=== PATIENT | male | born 1950 | race Caucasian/White ===

== ENCOUNTER → 2016-07-17 | Outpatient (CLI) | payer OTHER ==
[~2016-07-17] MED LIST: ATOR-54 PO; CYAN10004 PO; GLC/500 PO; SULF500T36 PO; TAMS0.4C59 PO
== END | disposition home or self-care (01) ==
LOC: C.PATHSPEC 14:17
PROVIDERS: ATTEND Dermatology
DX: L82.1 Other seborrheic keratosis (principal)

== ENCOUNTER → 2016-08-21 | Outpatient (CLI) | payer OTHER ==
[2016-08-21 17:23] LABS: BLOOD UREA NITROGEN 9 mg/dl (7-18); BUN/CREATININE RATIO 10.7 (10-20); CALCIUM 9.4 mg/dl (8.5-10.1); CARBON DIOXIDE 30 mmol/L (21-32); CHLORIDE 104 mmol/L (98-107); CREATININE 0.84 mg/dl (0.60-1.40); GLUCOSE 110 mg/dl (70-99); POTASSIUM 4.1 mmol/L (3.5-5.1); SODIUM 139 mmol/L (136-145)
[2016-08-21 17:34] LABS: CHOLESTEROL 178 mg/dl (0-200); HDL CHOLESTEROL 45 mg/dl; LDL CHOLESTEROL CALCULATED 104 mg/dl; TRIGLYCERIDES 146 mg/dl (0-150); VERY LOW DENSITY LIPOPROT CALC 29 mg/dl
[2016-08-22 07:38] LABS: ESTIMATED AVERAGE GLUCOSE 114 mg/dl; HA1C FLAG Normal (Normal)
== END | disposition home or self-care (01) ==
LOC: C.LABPVFM 11:47
PROVIDERS: ATTEND Family Medicine
DX: E78.00 Pure hypercholesterolemia, unspecified (principal); R73.09 Other abnormal glucose; R53.83 Other fatigue

== ENCOUNTER → 2017-02-14 | Outpatient (CLI) | payer OTHER ==
[2017-02-14 13:01] LABS: ESTIMATED AVERAGE GLUCOSE 94 mg/dl; HA1C FLAG Normal (Normal)
[2017-02-14 13:26] LABS: BLOOD UREA NITROGEN 13 mg/dl (7-18); BUN/CREATININE RATIO 16.3 (10-20); CALCIUM 9.4 mg/dl (8.5-10.1); CARBON DIOXIDE 26 mmol/L (21-32); CHLORIDE 106 mmol/L (98-107); CHOLESTEROL 150 mg/dl (0-200); CHOLESTEROL/HDL RATIO 3.1; GLUCOSE 108 mg/dl (70-99); HDL CHOLESTEROL 49 mg/dl; LDL CHOLESTEROL CALCULATED 77 mg/dl; POTASSIUM 4.2 mmol/L (3.5-5.1); SODIUM 139 mmol/L (136-145); TRIGLYCERIDES 120 mg/dl (0-150); VERY LOW DENSITY LIPOPROT CALC 24 mg/dl
== END | disposition home or self-care (01) ==
LOC: C.LABPVFM 09:35
PROVIDERS: ATTEND Family Medicine
DX: E11.9 Type 2 diabetes mellitus without complications (principal); E78.00 Pure hypercholesterolemia, unspecified

== ENCOUNTER → 2017-08-06 | Outpatient (CLI) | payer OTHER ==
[2017-08-06 12:11] LABS: HEMATOCRIT 42.6 % (42-52); HEMOGLOBIN 14.3 g/dL (14.0-18.0); MEAN CELL VOLUME 99.5 fL (80-100); MEAN CORPUSCULAR HEMOGLOBIN 33.4 pg (25-34); MEAN CORPUSCULAR HGB CONC 33.6 g/dl (32-36); MEAN PLATELET VOLUME 10.6 fL (7.4-10.4); PLATELET COUNT 156 K/uL (130-400); RED CELL DISTRIBUTION WIDTH CV 13.2 % (11.5-14.5); RED CELL DISTRIBUTION WIDTH SD 47.3 fL (36.4-46.3); WHITE BLOOD COUNT 6.31 K/uL (4.8-10.8)
[2017-08-06 12:44] LABS: HEMOGLOBIN A1C 5.6 % (4.5-5.6)
[2017-08-06 13:16] LABS: BLOOD UREA NITROGEN 11 mg/dl (7-18); CREATININE 0.89 mg/dl (0.60-1.40); GLUCOSE 130 mg/dl (70-99)
[2017-08-06 13:17] LABS: CARBON DIOXIDE 28 mmol/L (21-32); POTASSIUM 4.3 mmol/L (3.5-5.1); SODIUM 136 mmol/L (136-145)
[2017-08-06 13:18] LABS: ALBUMIN 4.2 gm/dl (3.4-5.0); ALKALINE PHOSPHATASE 46 U/L (45-117); ALT/SGPT 23 U/L (12-78); AST/SGOT 11 U/L (15-37); CALCIUM 9.4 mg/dl (8.5-10.1); TOTAL PROTEIN 7.5 gm/dl (6.4-8.2)
[2017-08-06 13:19] LABS: CHOLESTEROL 148 mg/dl (0-200)
[2017-08-06 13:20] LABS: LDL CHOLESTEROL CALCULATED 77 mg/dl
== END | disposition home or self-care (01) ==
LOC: C.LABPVFM 09:20
PROVIDERS: ATTEND Family Medicine
DX: K51.90 Ulcerative colitis, unspecified, without complications (principal)

== ENCOUNTER 2019-01-17 02:03 | Inpatient (IN) ==
[2019-01-17 02:47] LABS: Basophils # (auto) 0.03 K/uL (0-0.2); Basophils % (auto) 0.4 %; Eosinophils # (auto) 0.03 K/uL (0-0.5); Eosinophils % (auto) 0.4 %; Hemoglobin 13.9 g/dL (14.0-18.0); Immature Granulocytes # (auto) 0.06 K/uL (0.00-0.02); Immature Granulocytes % (auto) 0.9 %; Mean Corpuscular Hemoglobin 32.6 pg (25-34); Mean Corpuscular Hgb Conc 33.1 g/dL (32-36); Mean Corpuscular Volume 98.4 fL (80-100); Mean Platelet Volume 10.7 fL (7.4-10.4); Monocytes # (auto) 0.76 K/uL (0.11-0.59); Neutrophils # (auto) 4.23 K/uL (1.4-6.5); Neutrophils % (auto) 61.3 %; Platelet Count 165 K/uL (130-400); RDW Coefficient of Variation 13.3 % (11.5-14.5); Red Blood Count 4.27 M/uL (4.7-6.1); White Blood Count 6.91 K/uL (4.8-10.8)
[2019-01-17 02:52] LABS: Appearance Urine Cloudy (Clear); Color Urine Orange; Protein Urine Positive (Negative); Specific Gravity Urine 1.035 (1.000-1.030)
[2019-01-17 02:55] LABS: Bacteria Urine Negative (Negative); Mucus Urine Present (None Prsent); RBC Urine 0-4 /hpf (0-4)
[2019-01-17 03:04] LABS: Amphetamines+Metham, Urine Neg (Neg); Barbiturates, Urine Neg (Neg); Benzodiazepine, Urine Neg (Neg); Cocaine, Urine Neg (Neg); Methadone, Urine Neg (Neg); Opiate, Urine Neg (Neg)
[2019-01-17 03:21] LABS: Albumin Globulin Ratio 1.3 (0.9-2); Albumin Level 4.2 gm/dl (3.4-5.0); BUN Creatinine Ratio 16.6 (10-20); Bilirubin,Total 0.7 mg/dl (0.2-1); Calcium 9.3 mg/dl (8.5-10.1); Creatinine Clr Calc Pharmacy 72.5 ml/min; Est GFR (African American) 83.9; Est GFR (Non-African American) 72.4; Globulin 3.3 gm/dl (2.5-4.0); Potassium 3.6 mmol/L (3.5-5.1); Thyroid Stimulating Hormone 1.28 uIu/ml (0.300-4.500); Total Protein 7.5 gm/dl (6.4-8.2)
[2019-01-17 03:32] LABS: Acetaminophen < 2 ug/ml (10-30); Salicylate 4.8 mg/dl (2.8-20)
--- NOTE | 2019-01-17 06:11 | Emergency Department Note ---
Entered by Ryan Braswell acting as a scribe for Bettye Fitzgerald MD History of Present Illness General Chief complaint: Mental Health Evaluation Stated complaint: [facility] Time Seen by Provider: 01/17/19 02:16 Source: patient and police History of Present Illness Onset (ago): hour(s) (this evening) Pain Consistency: + now resolved Maximum Pain Intensity: 0 Quality: + other (suicidal ideations) Exacerbated By: + other (family problems) The patient is a 68 y/o male who presents to the ED for a mental health evaluation. Police were informed the patient was standing in his house and had loaded shells into a rifle he was holding. They report they were called to the house, but they did not make it there because they saw the patient driving before they reached the house. Police note they turned around and then pulled the patient over in his truck. They state they found a gun in his car that was not loaded, and they did not search the patient's car. Police report the patient made comments to his granddaughter that he was going to kill himself. They note when they ask him about it, he states "it passed, it passed". Police states they did later discover the gun in the car was supposed to go to his brother in [place] because it is a family heirloom. The patient states "I got depressed and was talking stupid. I wanted to end it all, but I did not have the guts to do it." He reports he was talking on the phone with his brother prior to EMS and the police arriving. 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 He reports he was on his way to his brother's house when the real estate rep pulled him over in his car. He states he will not get into his problems with anyone because it is family stuff. The patient reports he made comments about killing himself. He notes he put the gun back in the place where it belongs, and the gun in the car was for his nephew and it does not have ammunition in it. The patient notes a history of DM, ulcerative colitis, glaucoma, and high cholesterol. He denies using alcohol, substance use, and a history of smoking. The patient granted up permission to talk to his brother, and he gave us the brother's phone number. Home Medications Home Medications Medication Instructions Recorded Confirmed Type Travatan Z 1 drp OPHTHALMIC (EYE) HS 04/26/18 01/17/19 History metformin 500 mg PO BID 04/26/18 01/17/19 History sulfasalazine 2 tab PO QID 04/26/18 01/17/19 History tamsulosin [Flomax] 0.4 mg PO HS 04/26/18 01/17/19 History triamcinolone acetonide 1 applic TOPICAL BID PRN 04/26/18 01/17/19 History atorvastatin 20 mg tablet See Rx Instructions .ROUTE 11/22/18 01/17/19 Rx .COMPLEX #90 tablet Allergies Allergy/AdvReac Type Severity Reaction Status Date / Time No Known Drug Allergies Allergy Verified 11/21/18 13:26 Past Med/Surg History Medical History Ulcerative colitis Hypercholesterolemia Enlarged prostate without lower urinary tract symptoms (luts) Diverticulosis Diabetes mellitus Bifascicular bundle branch block BPH (benign prostatic hyperplasia) Diabetes mellitus, type 2 GERD (gastroesophageal reflux disease) Glaucoma Hyperlipidemia Ulcerative colitis Surgical History History of cataract surgery RT/LEFT History of colonoscopy History of repair of rotator cuff LEFT History of tooth extraction Family History Brother Family history of diabetes mellitus Family hx of colon cancer Mother Family hx of colon cancer Sister Family hx of colon cancer Social History Preferred Language: French Communication Ability: Effective Pilot Fuel Engineer Required: No Beliefs That Will Affect Care: None Current Living Situation: Family Current Living Situation Comment: OLDER GRANDAUGHTER STAYS OCCASIONALLY Feels Safe at Home: Yes Smoking Status: Never smoker Second Hand Exposure: No ; Hx Alcohol Use: Yes Alcohol type: hard liquor Hx Substance Use: No Review of Systems See HPI for pertinent positives & negatives. and A total of 10 systems reviewed and were otherwise negative Physical Exam Vital Signs Vital Signs - 24 hr 01/17/19 02:05 01/17/19 05:50 Temperature 36.7 C Temperature Source Oral Sepsis Recent Fever Within 48 Hours No Sepsis New/Unexplained Change in Mental Status No Sepsis Action Taken by Nursing No Action Required Pulse Rate 119 H Pulse Rate [Right] 109 H Pulse Rhythm [Right] Regular Pulse Strength [Right] Normal Respiratory Rate 16 18 Respiratory Effort / Characteristics Non-Labored Spontaneous Non-Labored Spontaneous Respiratory Depth Normal Normal Respiratory Pattern Regular Blood Pressure 140/85 Blood Pressure [Left Arm] 156/90 H Blood Pressure Mean 103 Blood Pressure Mean [Left Arm] 112 Blood Pressure Position [Left Arm] Sitting Pulse Oximetry 96 97 Oxygen Delivery Method Room Air Room Air Vital signs reviewed. General: Well-appearing 68 year old male, in no significant distress. HEENT: No scleral icterus, PERRLA, neck supple. Atraumatic. Cardiovascular: Regular rate and rhythm, no extra sounds. Pulmonary: Clear to auscultation bilaterally, normal work of breathing. Abdomen: Soft, nontender, nondistended, positive bowel sounds. Musculoskeletal: Atraumatic, no peripheral edema. Neurologic: Patient awake alert and oriented x 3 Skin: Warm, dry, no rash Psych: Positive SI with plan. Negative HI. Course 0221: Past medical records reviewed. The patient was evaluated in room A06. A c omplete history and physical examination was performed. 0252: The patient gave the psychiatric caseworker protective services (PCM) permission to call his brother, Usha. We discussed the conversation she had with the patient's brother. 0434: The PCM updated me of her other conversations with the brother and the patient. 0451: I reevaluated the patient. After a long discussion with him, he is voluntary. The petitioning statement will be filed with the patient in the event it is needed. 0608: I discussed the patient's case again with the PCM. He is accepted to [address] [place] [address] and signing in voluntarily on a 202. Medical Decision Making Differential Diagnosis Differential diagnoses considered include mood disorder, infection, hyp oglycemia, electrolyte abnormalities, cardiac sources, intracerebral event, toxicologic, neurologic, as well as others. Medical Records Attestation: I reviewed the patient's medical records. Home Medications Current Medication List: was personally reviewed by me Laboratory Data Attestation: I reviewed the patient's lab results. Result diagrams: 01/17/19 02:34 01/17/19 02:34 Lab Results 01/17/19 01/17/19 01/17/19 Range/Units 02:20 02:20 02:34 WBC 6.91 (4.8-10.8) K/uL RBC 4.27 L (4.7-6.1) M/uL Hgb 13.9 L (14.0-18.0) g/dL Hct 42.0 (42-52) % MCV 98.4 (80-100) fL MCH 32.6 (25-34) pg MCHC 33.1 (32-36) g/dL RDW Std Deviation 47.0 H (36.4-46.3) fL RDW Coeff of Nguyen 13.3 (11.5-14.5) % Plt Count 165 (130-400) K/uL MPV 10.7 H (7.4-10.4) fL Immature Gran % (Auto) 0.9 % Neut % (Auto) 61.3 % Lymph % (Auto) 26.0 % Parker % (Auto) 11.0 % Eos % (Auto) 0.4 % Baso % (Auto) 0.4 % Immature Gran # (Auto) 0.06 H (0.00-0.02) K/uL Neut # (Auto) 4.23 (1.4-6.5) K/uL Lymph # (Auto) 1.80 (1.2-3.4) K/uL Parker # (Auto) 0.76 H (0.11-0.59) K/uL Eos # (Auto) 0.03 (0-0.5) K/uL Baso # (Auto) 0.03 (0-0.2) K/uL Sodium (136-145) mmol/L Potassium (3.5-5.1) mmol/L Chloride (98-107) mmol/L Carbon Dioxide (21-32) mmol/L Anion Gap (3-11) BUN (7-18) mg/dl Creatinine (0.6-1.4) mg/dl Est Cr Clr Drug Dosing ml/min Est GFR ( Amer) Est GFR (Non-Af Amer) BUN/Creatinine Ratio (10-20) Glucose (70-99) mg/dl Calcium (8.5-10.1) mg/dl Total Bilirubin (0.2-1) mg/dl AST (15-37) U/L ALT (12-78) U/L Alkaline Phosphatase (45-117) U/L Total Protein (6.4-8.2) gm/dl Albumin (3.4-5.0) gm/dl Globulin (2.5-4.0) gm/dl Albumin/Globulin Ratio (0.9-2) TSH (0.300-4.500) uIu/ml Specimen Hemolysis Urine Color Dundy Urine Appearance Cloudy A (Clear) Urine pH (4.5-7.5) Ur Specific [place] 1.035 H (1.000-1.030) Urine Protein Positive H (Negative) Urine Glucose (UA) (Negative) Urine Ketones (Negative) Urine Blood (Negative) Urine Nitrite (Negative) Urine Bilirubin (Negative) Urine Urobilinogen (Negative) Ur Leukocyte Esterase (Negative) Urine RBC 0-4 (0-4) /hpf Urine WBC 5-10 H (0-5) /hpf Ur Epithelial Cells 10-20 H (0-5) /lpf Urine Bacteria Negative (Negative) Urine Mucus Present A (None Prsent) Salicylates (2.8-20) mg/dl Urine Opiates Screen Neg (Neg) Ur Methadone, Qual Neg (Neg) Acetaminophen (10-30) ug/ml Urine Barbiturates Neg (Neg) U Amphetamin/Meth Scrn Neg (Neg) U Benzodiazepines Scrn Neg (Neg) Ur Cocaine Metabolite Neg (Neg) U Marijuana (THC) Screen Neg (Neg) Ethyl Alcohol mg/dL (0-3) mg/dl 01/17/19 01/17/19 01/17/19 Range/Units 02:34 02:34 02:34 WBC (4.8-10.8) K/uL RBC (4.7-6.1) M/uL Hgb (14.0-18.0) g/dL Hct (42-52) % MCV (80-100) fL MCH (25-34) pg MCHC (32-36) g/dL RDW Std Deviation (36.4-46.3) fL RDW Coeff of Nguyen (11.5-14.5) % Plt Count (130-400) K/uL MPV (7.4-10.4) fL Immature Gran % (Auto) % Neut % (Auto) % Lymph % (Auto) % Parker % (Auto) % Eos % (Auto) % Baso % (Auto) % Immature Gran # (Auto) (0.00-0.02) K/uL Neut # (Auto) (1.4-6.5) K/uL Lymph # (Auto) (1.2-3.4) K/uL Parker # (Auto) (0.11-0.59) K/uL Eos # (Auto) (0-0.5) K/uL Baso # (Auto) (0-0.2) K/uL Sodium 139 (136-145) mmol/L Potassium 3.6 (3.5-5.1) mmol/L Chloride 105 (98-107) mmol/L Carbon Dioxide 26 (21-32) mmol/L Anion Gap 8.0 (3-11) BUN 17 (7-18) mg/dl Creatinine 1.04 (0.6-1.4) mg/dl Est Cr Clr Drug Dosing 72.5 ml/min Est GFR ( Amer) 83.9 Est GFR (Non-Af Amer) 72.4 BUN/Creatinine Ratio 16.6 (10-20) Glucose 183 H (70-99) mg/dl Calcium 9.3 (8.5-10.1) mg/dl Total Bilirubin 0.7 (0.2-1) mg/dl AST 7 L (15-37) U/L ALT 19 (12-78) U/L Alkaline Phosphatase 45 (45-117) U/L Total Protein 7.5 (6.4-8.2) gm/dl Albumin 4.2 (3.4-5.0) gm/dl Globulin 3.3 (2.5-4.0) gm/dl Albumin/Globulin Ratio 1.3 (0.9-2) TSH 1.280 (0.300-4.500) uIu/ml Specimen Hemolysis Urine Color Urine Appearance (Clear) Urine pH (4.5-7.5) Ur Specific [place] (1.000-1.030) Urine Protein (Negative) Urine Glucose (UA) (Negative) Urine Ketones (Negative) Urine Blood (Negative) Urine Nitrite (Negative) Urine Bilirubin (Negative) Urine Urobilinogen (Negative) Ur Leukocyte Esterase (Negative) Urine RBC (0-4) /hpf Urine WBC (0-5) /hpf Ur Epithelial Cells (0-5) /lpf Urine Bacteria (Negative) Urine Mucus (None Prsent) Salicylates 4.8 (2.8-20) mg/dl Urine Opiates Screen (Neg) Ur Methadone, Qual (Neg) Acetaminophen < 2 L (10-30) ug/ml Urine Barbiturates (Neg) U Amphetamin/Meth Scrn (Neg) U Benzodiazepines Scrn (Neg) Ur Cocaine Metabolite (Neg) U Marijuana (THC) Screen (Neg) Ethyl Alcohol mg/dL < 3.0 (0-3) mg/dl Blood Pressure Blood Pressure Findings: Elevated blood pressure Blood Pressure Disposition: further management by hospitalist MDM Narrative This patient was evaluated and appeared to be in no significant distress. Patient was escorted into the emergency department by the [facility] police. A 302 was petitioned by the police. The patient has admitted to significant suicidal thoughts and acts of furtherance. He states he no longer has those thoughts however his brother presented to the emergency department after a phone call with case management. Apparently the patient has been accused of inappropriate contact with a young girl, according to the brother. Apparently he was accused of similar things years ago but was acquitted. The recent allegation has reignited many hopeless feelings. The patient has been very evasive when asked questions about his "personal issues" and has not admitted to any legal issues. The patient has signed in voluntarily at this time. He has been accepted to [facility] for admission and further management. Impression & Plan Suicidal ideation Discharge Plan Visit Data Chief Complaint: Mental Health Evaluation Stated Complaint: [facility] EVAL ED Provider: Bettye Fitzgerald Discharge Problem: Suicidal ideation Patient Disposition: Being Evaluated by Hospitalist Forms Stand Alone Forms: My [facility] Prescriptions Prescriptions: No Action atorvastatin 20 mg tablet See Rx Instructions .ROUTE .COMPLEX Qty: 90 RF: 0 metformin 500 mg Tablet 500 mg PO BID RF: 0 sulfasalazine 500 mg Tablet 2 tab PO QID RF: 0 Travatan Z 0.004 % Drops 1 drp OPHTHALMIC (EYE) HS RF: 0 triamcinolone acetonide 0.025 % Cream 1 applic TOPICAL BID PRN (Reason: NEEDED) RF: 0 tamsulosin [Flomax] 0.4 mg Capsule 0.4 mg PO HS RF: 0 Referrals Referrals: Sherlyn Rossi MD [Primary Care Provider] - The scribe's documentation has been prepared under my direction and personally reviewed by me in its entirety. I confirm that the note above accurately reflects all work, treatment, procedures, and medical decision making performed by me.
[2019-01-17] MEDS ORDERED: ACETAMINOPHEN 325 MG TAB PO PRN (06:54)
[2019-01-17] MEDS ORDERED: ALUMINUM/MAGNESIUM SUSP 30 ML UDC PO PRN (06:54)
[2019-01-17] MEDS ORDERED: SODIUM CHLORIDE 0.65% NA SOLN 45 ML (OCEAN) PRN (06:54)
[2019-01-17] MEDS ORDERED: MAGNESIUM HYDROXIDE SUSP 30 ML UDC PO PRN (06:54)
[2019-01-17] MEDS ORDERED: BISMUTH SUBSALICYLATE PER ML OMNICELL CHARGE PO PRN (06:54)
[2019-01-17] MEDS: sulfaSALAzine 500 MG TABLET PO SCH ×4 (09:09→21:00)
[2019-01-17] MEDS: METFORMIN HCL 500 MG TAB PO SCH ×2 (09:09→17:30)
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
[2019-01-17 11:54] LABS: MDMA (Ecstacy), Urine Neg (Neg); Phencyclidine, Urine Neg (Neg)
[2019-01-17] MEDS ORDERED: TRAZODONE HCL 50 MG TAB PO PRN (12:59)
[2019-01-17] MEDS: TRAVOPROST Z 0.004% OPH SOLN 2.5 ML BTL OP SCH (21:00)
[2019-01-17] MEDS: TAMSULOSIN HCL 0.4 MG CAP PO SCH (21:00)
[2019-01-17] MEDS: ATORVASTATIN 20 MG TAB PO SCH (21:00)
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
[2019-01-18] MEDS: METFORMIN HCL 500 MG TAB PO SCH ×2 (09:18→17:16)
[2019-01-18] MEDS: sulfaSALAzine 500 MG TABLET PO SCH ×4 (09:18→21:22)
[2019-01-18] MEDS: TRAVOPROST Z 0.004% OPH SOLN 2.5 ML BTL OP SCH (21:22)
[2019-01-18] MEDS: TAMSULOSIN HCL 0.4 MG CAP PO SCH (21:22)
[2019-01-18] MEDS: ATORVASTATIN 20 MG TAB PO SCH (21:22)
[2019-01-19] MEDS: METFORMIN HCL 500 MG TAB PO SCH ×2 (09:14→12:48)
[2019-01-19] MEDS: sulfaSALAzine 500 MG TABLET PO SCH ×2 (09:14→12:48)
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
== END 2019-01-19 13:22 | disposition home or self-care (01) | DRG 882 ==
LOC: ED 02:03 → 3S 06:20